=== PATIENT | male | born 1945 | race Caucasian/White ===

== ENCOUNTER → 2017-09-28 09:26 | Outpatient (CLI) | payer MEDICARE, OTHER, SELFPAY ==
[2017-09-28 11:21] LABS: PSA,Total- Diagnostic 4.66 ng/mL (0.0-4.0)
== END ==
PROVIDERS: Family Provider Family Medicine; PCP Family Medicine; Visit Provider Urology
DX: R97.20 Elevated prostate specific antigen [PSA] (principal)
CPT/HCPCS: 36415; 84153

== ENCOUNTER → 2021-12-16 | Outpatient (CLI) | payer MEDICARE, OTHER, SELFPAY ==
--- NOTE | 2021-12-16 09:05 | RAD_ITS ---
STUDY: X-RAY - ESOPHAGUS (BARIUM SWALLOW) WITH FLUOROSCOPY REASON FOR EXAM: Male, 76 years old. DYSPHAGIA,GERD 12MM TABLET TECHNIQUE: 18 view(s) of the esophagus were obtained following swallowing of barium. FLUOROSCOPY TIME (if supplied): (30 seconds) minutes/seconds COMPARISON: None. FINDINGS: There is no demonstrated esophageal foreign body. There is no demonstrated stricture or mucosal abnormality. There is a small hiatal hernia of the fundus of the stomach. Gastroesophageal reflux. The patient ingested a 12 mm tablet of barium without any difficulty. There is atherosclerotic tortuosity of the aortic arch and descending thoracic aorta. Normal visualized pulmonary parenchyma. There are diffuse degenerative changes of the visualized thoracic spine. RAD/Esophagus Dual Contrast IMPRESSION: Small sliding nail hernia with gastroesophageal reflux. The patient ingested a 12 mm tablet of barium without any difficulty. Electronically Signed: Jesus Ayoub MD at 9:47 EDT ,
== END | disposition home or self-care (01) ==
PROVIDERS: PCP Family Medicine; Referring Provider Internal Medicine Gastroenterology; Visit Provider Internal Medicine Gastroenterology
DX: K21.9 Gastro-esophageal reflux disease without esophagitis (principal)
CPT/HCPCS: 74221

== ENCOUNTER 2023-12-13 10:34 | Day surgery (SDC) | payer MEDICARE, OTHER, SELFPAY ==
--- NOTE | 2023-12-05 13:08 | EKG12_ITS ---
Test Reason : PREOP Blood Pressure : / mmHG Vent. Rate : 061 BPM Atrial Rate : 061 BPM P-R Int : 136 ms QRS Dur : 084 ms QT Int : 410 ms P-R-T Axes : 039 013 046 degrees QTc Int : 412 ms Normal sinus rhythm Normal ECG Confirmed by FABRICIO NGUYEN, ALEXIA ([id number]), slot editor ALANIS GARVEY ([id number]) on 12/06/2023 6:50:06 AM Referred By: Carl Vazquez Confirmed By:ALEXIA REGALADO MD
[2023-12-05 14:03] LABS: Hemoglobin 13.4 g/dL (13.0-16.5); Mean Corp Hgb Conc 32.7 g/dL (32-36); Mean Corpuscular Hgb 28.8 pg (27.0-32.0); Mean Corpuscular Volume 88.2 fL (80-94); Mean Platelet Vol. 9.4 fl (6.2-12.0); Platelet Count 221 K/mm3 (150-450); RBC Distribution Width CV 13.6 % (11.6-14.6); Red Blood Count 4.65 M/mm3 (4.6-6.2); White Blood Count 7.2 K/mm3 (4.4-11.0)
[2023-12-05 14:30] LABS: Anion Gap 4 (5-15); BUN 18 mg/dL (7-18); BUN/Creat Ratio 14.2 RATIO (10-20); Calcium,Total 9.2 mg/dL (8.5-10.1); Chloride 107 mmol/L (98-107); Creatinine, Serum 1.27 mg/dL (0.70-1.30); EST Glomerular Filtration Rate 58 mL/min (>60); Est Glom Filt Rate - Afr Amer 70 mL/min (>60); Glucose 93 mg/dL (74-106); Potassium 4.1 mmol/L (3.5-5.1); Sodium Level 139 mmol/L (136-145)
[2023-12-13] VITALS (14 sets, daily range): BP systolic 122–147; BP diastolic 70–83; PULSE 65–79; RESP 16–18; TEMP 36.1–36.7; O2SAT 93–97
--- NOTE | 2023-12-13 | IMM_PTH ---
PATIENT: ASIF SHELTON [place] [facility] [place]#:[id number] AGE/SX: 78/M ROOM: RE12/13/[address]: Dr. Carl Vazquez MD : 1945 BED: DIS: 12/14/2023 SPEC #: [id number] RECD: 12/15/23 10:09 STATUS: JUAQUIN REQ #: [id number] PALAK: 12/13/23 00:[address]: Carl Vazquez DEPT: IMMUNOHISTOCHEMISTRY RECD BY: Jamie Bansal ENTERED: 12/15/23 10:09 SP TYPE: IMMUNO OTHR DR: Dr. Kevin Gallo MD Tissues: Prostate, NOS Procedures: 34BE12 (add) P40 (initial) PHYSICIAN & INSTITUTION [place] [id number] SPECIMEN INFORMATION: Tissue Source: Prostate tissue and bladder stones Clinical Info: Bladder stone and BPH with obstruction Specimen Number: [id number] CPT code: 80173,18417 METHODOLOGY: Deparaffinized sections of prefer/formalin-fixed tissue or PAP/DQ stained slides are incubated with monoclonal/polyclonal antibodies/oligonucleotide probes. Localization is made via biotin free immunoperoxidase method. Appropriate controls are performed and reacted as expected. Results on target cell population are indicated in the following table: RESULTS: ANTIBODY / CLONE RESULT P40 (BC28) positive 34BE12 (34BE12) positive These tests were developed and their performance characteristics determined by [facility]. They may not have been cleared or approved by the U.S. Food and Drug Administration. The FDA has determined that such clearance or approval is not necessary. The above immunohistochemical/dualISH markers are ordered and reviewed by the Pathologist. INTERPRETATION: Prostate tissue and bladder stones: Benign prostatic hyperplasia. LOAN/ 12/15/2023
--- NOTE | 2023-12-13 11:30 | PCM.HP.STD ---
HPI - General General Date of Service: 12/13/23 Chief Complaint: Bladder stone and BPH with obstruction HPI Narrative ASIF SHELTON, is a 78 M who presents to laser bladder stone and also proceed with a transurethral section of prostate PFS Medical History (Updated 11/30/23 @ 11:23 by Winnie Chen) Bladder disease Cardiology follow-up encounter Difficulty swallowing Former smoker Gastric reflux High cholesterol History of hiatal hernia History of stress test Hypertension Low iron Prostate disease Wears contact lenses Wears glasses Wears hearing aid Home Medications aspirin 81 mg chewable tablet 81 mg PO DAILY@0800 09/03/16 [History Last Taken 09/03/16 08:00 81 MG] ezetimibe 10 mg tablet 10 mg PO QHS 09/03/16 [History Last Taken 12/12/23 18:00] metoprolol succinate 25 mg tablet,extended release 24 hr 25 mg PO QHS 09/03/16 [History Last Taken 12/12/23 18:00] multivitamin (Daily Multiple tablet) 1 ea PO DAILY 09/03/16 [History Last Taken 09/03/16 08:00] pantoprazole 20 mg tablet,delayed release 40 mg PO QHS 09/03/16 [History Last Taken 12/12/23 18:00] tamsulosin 0.4 mg capsule 0.4 mg PO DAILY 09/03/16 [History Last Taken 09/03/16 08:00 0.4MG] dutasteride 0.5 mg capsule 0.5 mg PO QHS 11/30/23 [History Last Taken 12/12/23 18:00] fiber 1 cap PO DAILY 11/30/23 [History Last Taken Unknown] lovastatin 20 mg tablet 20 mg PO QHS 11/30/23 [History Last Taken 12/12/23 18:00] Allergy/AdvReac Type Severity Reaction Status Date / Time rosuvastatin [From Crestor] AdvReac Intermediate muscle Verified 12/13/23 11:06 cramps Surgical History (Updated 11/30/23 @ 11:23 by Winnie Chen) History of hand surgery Hx of colonoscopy Hx of heart bypass surgery Social History Smoking Status: Former smoker Vital Signs Vital Signs Vital Signs: 12/13/23 11:20 12/13/23 11:20 Temperature 98.1 F Temperature Source Temporal Pulse Rate 65 Respiratory Rate 16 Respiratory Pattern Normal Blood Pressure 134/75 H Blood Pressure Mean 94 Blood Pressure Source Monitor Blood Pressure Position Semi-Fowlers Blood Pressure Location Left Arm Pulse Ox 95 Oxygen Delivery Method Room Air Weight Weight: 106.1 kg Body Mass Index (BMI) 30.0 Results Lab / Micro Data 12/05/23 13:38 12/05/23 13:38
[2023-12-13] MEDS: Lactated Ringers 1,000 ML 15 ML IV (11:32)
[2023-12-13] MEDS: Cefazolin 2 GM in 0.9% Normal Saline (100mL Bag) 100 ML IV (12:24)
--- NOTE | 2023-12-13 12:45 | PROS_PTH ---
PATIENT: ASIF SHELTON LOC: [facility] – [place] U#:[id number] AGE/SX: 78/M ROOM: RE12/13/[address]: Dr. Carl Vazquez MD : 1945 BED: DIS: 12/14/2023 SPEC #: [id number] RECD: 12/13/23 14:01 STATUS: JUAQUIN MCMANUS #: [id number] PALAK: 12/13/23 12:[address]: Carl Vazquez DEPT: SURGICAL PATHOLOGY RECD BY: Vianney Fernandes ENTERED: 12/13/23 14:02 SP TYPE: TURP OTHR DR: Dr. Kevin Gallo MD Tissues: Prostate, NOS Procedures: Surgery Specimen Level IV HEADER OPERATION: Cysto, Transurethral resection prostate with Olympus PRE-OP DIAGNOSIS: Bladder stone and BPH with obstruction TISSUE SUBMITTED: Prostate tissue and bladder stones MICROSCOPIC DIAGNOSIS Prostate and bladder stone, transurethral resection: Benign prostatic hyperplasia, glandular and stromal type. Chronic inflammation. Fragments of stone, clinically bladder stone (gross only). See comment. / 12/15/23 COMMENT Immunohistochemistry ([id number]) supports the above diagnosis. MICROSCOPIC DESCRIPTION Slides are reviewed. GROSS DESCRIPTION Received is one container labeled with the patient's name and designated prostate tissue and bladder stone. The specimen consists of multiple irregular fragments of noonan, rubbery, soft tissue mixed with fragments of noonan-brown stone that weigh in aggregate 6.5gm and measuring in aggregate 4.0 x 4.0 x 1.0cm. Stones measures <0.1 to 0.4cm in greatest dimension. Entire soft tissue is submitted in six cassettes. The stones are for gross identification only. [facility] 12/13/23 TC:5 CPT: 06484,75070
--- NOTE | 2023-12-13 13:17 | DCINST_ITS ---
Discharge Instructions Diet Discharge Diet: No restrictions Activity Discharge Activity: Return to Normal Activity and May Not Drive (while taking narcotic pain medications.) Dressing / Incision Call your doctor if you observe: Fever of 101 or Higher Follow Up Care Please Follow Up With: Carl Vazquez MD When: Call [phone] for an appointment Test Results: Test results from this visit will be discussed in further detail at your follow- up appointment, if applicable. Discharge Plan Admission Attending Provider: Carl Vazquez Primary Care Provider: Kevin Gallo Discharge Orders/Prescriptions Prescriptions: No Action multivitamin [Daily Multiple] 1 EACH tablet 1 ea PO DAILY Patient Comments: SUPPLEMENT pantoprazole 20 MG tablet 40 mg PO QHS Patient Comments: STOMACH ACID tamsulosin 0.4 MG capsule 0.4 mg PO DAILY Patient Comments: PROSTATE aspirin 81 MG tablet,chewable 81 mg PO DAILY@0800 Patient Comments: BLOOD THINNER metoprolol succinate 25 MG tablet extended release 24 hr 25 mg PO QHS Patient Comments: BP MED ezetimibe 10 MG tablet 10 mg PO QHS Patient Comments: CHOLESTEROL dutasteride 0.5 mg capsule 0.5 mg PO QHS lovastatin 20 mg tablet 20 mg PO QHS fiber Capsule 1 cap PO DAILY Referrals / Follow Up: Kevin Gallo MD [Primary Care Provider] - Disposition Disposition (needs filled in before D/C Order can be placed): Home, Self Care
--- NOTE | 2023-12-13 13:17 | OP.PCM_ITS ---
Report of Operation Date of Procedure: 12/13/23 Pre-Operative Diagnosis: Bladder stone is medium in size and BPH with obstructi on Post-Operative Diagnosis: The same Surgery/Procedure Performed:: Transurethral section of prostate and cystolitholapaxy for medium size stones Description of Surgical Findings:: In the preoperative setting I discussed with the patient how the surgery would be done with expect afterwards. We discussed how a prostate resection is done and we discussed the risk of the surgery including, bleeding, infection, retrograde ejaculation, changes with ejaculation or intercourse,. We discussed the possibility that the resection of the prostate may not alleviate his urinary symptoms. We discussed the small risk of developing scar tissue along the urethral channel and strictures. We also discussed the chance of the prostate could grow back and he may need further surgery or treatment in the future for prostate problems. Patient was taken back to the operating room, timeout procedure was performed, he was identified and marked and placed on the operating room table. He underwent general anesthesia. He was placed in dorsolithotomy position. Patient was taken back to the operating room after smooth induction of general anesthesia. The urethra and genitals were prepped and draped in usual sterile fashion. Went into the bladder using a 24 Georgian cystoscope. We used the laser bridge through the scope for continuous irrigation. Then using the laser bridge we introduced a laser fiber into the bladder and the stone in the bladder was trapped against the back wall. The stone measured larger than 2,5cm in total size. The stone was then lasered using laser lithotripsy the small little pieces all the pieces were evacuated on the bladder. After all the stones were removed then the scope was removed there was minimal bleeding. Went into the bladder using the visual obturator with a resectoscope. Once inside the bladder identified the right and left ureteral orifice. I then identified the prostate and the anatomy of the prostate. I marked out the area of the sphincter and the verumontanum was identified. I then proceeded with the prostate resection first resected the median lobe. And then resected the right lobe of the prostate. Then to resect the left lobe of the prostate. I then resected the apical tissue of the prostate. This was a complete resection of all obstructive tissue to improve voiding and relieve obstruction. I then made sure that there was no injury to the sphincter or the verumontanum was still intact. At the end of the resection all the chips were Ellik out of the bladder. I then identified the left and right ureteral orifice and these were confirmed to be in good position and effluxing and not injured. The resectoscope was removed, a 22 Georgian catheter was placed into the bladder on continuous irrigation. And the urine was fairly light pink color and draining normally. He was taken back to the PACU in good condition. Surgeon: Carl Vazquez Type of Anesthesia: General Drains: [address] Admit VTE Documentation VTE Present on Admission: No VTE Mechan Device Prophylaxis: SCD's VTE Pharm Prophylaxis ordered?: No
[2023-12-13] MEDS: Lactated Ringers 1,000 ML 125 ML IV (16:09)
[2023-12-13] MEDS: Ezetimibe 10 MG Tablet PO (21:23)
[2023-12-13] MEDS: Pantoprazole Sodium 40 MG Tablet PO (21:23)
[2023-12-13] MEDS: Finasteride 5 MG Tablet PO (21:23)
[2023-12-13] MEDS: Atorvastatin Calcium 10 MG Tablet PO (21:23)
[2023-12-13] MEDS: Tamsulosin HCl 0.4 MG Capsule PO (21:23)
[2023-12-13] MEDS: Metoprolol(XL)Succ 25 MG Tablet PO (21:23)
[2023-12-13] MEDS: Docusate Sodium 100 MG Capsule 200 MG PO (21:23)
[2023-12-14] MEDS: Mag Hydrox/Al Hydrox/Simeth 30 ML UDC PO (03:56)
[2023-12-14 04:15] VITALS: BP 158/85; PULSE 68; RESP 18; TEMP 36.5; O2SAT 95
--- NOTE | 2023-12-14 07:39 | PCM.PN.GU ---
Subjective Subjective d/c matos and go home Objective Data Objective Data Vital Signs: Vital Signs Temp Pulse Resp BP Pulse Ox O2 Del Method O2 Flow Rate 97.7 F L 68 18 158/85 H 95 Room Air 2 12/14/23 04:15 12/14/23 04:15 12/14/23 04:15 12/14/23 04:15 12/14/23 04:15 12/14/23 04:15 12/13/23 13:45 Oxygen Flow Rate (L/min) 2 Oxygen Delivery Method Room Air Weight: 106.1 kg Body Mass Index (BMI) 30.0 Intake & Output: Intake and Output for Last 24 Hours 12/12/23 12/13/23 12/14/23 23:59 23:59 23:59 Intake Total 1835.50 / 1835.50 Output Total 1700 / 1800 1100 / 1100 Balance 135.50 / 35.50 -1100 / -1100 Lab / Micro Data 12/05/23 13:38 12/05/23 13:38
[2023-12-14 08:17] VITALS: BP 142/77; PULSE 69; RESP 18; TEMP 36.5; O2SAT 96
[2023-12-14] MEDS: Multivitamins,Therapeutic Tablet 1 TABLET PO (08:21)
[2023-12-14] MEDS: Docusate Sodium 100 MG Capsule 200 MG PO (08:21)
[2023-12-14 13:48] VITALS: BP 125/67; PULSE 64; RESP 18; TEMP 36.5; O2SAT 93
== END 2023-12-14 14:18 | disposition home or self-care (01) ==
LOC: SDC 10:35 → AC 13:33 → MS3 13:35
PROVIDERS: Anesthesiology; PCP Family Medicine; Referring Provider Urology; Visit Provider Urology
PROC: (CPT 52318; principal; 2023-12-13 12:35)
DX: N21.0 Calculus in bladder (principal); I10 Essential (primary) hypertension; Z87.891 Personal history of nicotine dependence; E78.00 Pure hypercholesterolemia, unspecified; Z79.82 Long term (current) use of aspirin; N40.1 Benign prostatic hyperplasia with lower urinary tract symptoms; N13.8 Other obstructive and reflux uropathy; K21.9 Gastro-esophageal reflux disease without esophagitis; I25.10 Atherosclerotic heart disease of native coronary artery without angina pectoris; Z95.1 Presence of aortocoronary bypass graft
CPT/HCPCS: 52318; 52630; 00910; 36415; 80048; 85027; 88305; 88341; 88342; 93005; J7120; J2405

== ENCOUNTER → 2025-05-06 | Outpatient (CLI) | payer MEDICARE, OTHER, SELFPAY ==
[2025-05-06 15:07] LABS: PSA,Total- Diagnostic 3.51 ng/mL (0.00-4.00)
== END | disposition home or self-care (01) ==
PROVIDERS: PCP Family Medicine; Referring Provider Urology; Visit Provider Urology
DX: N40.1 Benign prostatic hyperplasia with lower urinary tract symptoms (principal)
CPT/HCPCS: 36415; 84153